=== PATIENT | female | born 1980 | race American Indian/Alaskan Native ===

== ENCOUNTER 2018-12-16 11:23 | Inpatient (IN) | payer MEDICAID ==
[2018-12-16] MEDS ORDERED: FAMOTIDINE 20 MG/2 ML INJ IV ONE ×2 (11:31→12:00)
[2018-12-16] MEDS ORDERED: METOCLOPRAMIDE 10 MG/2 ML INJ ONE (11:31)
[2018-12-16] MEDS ORDERED: BICITRA ORAL LIQD 30ML ONE (11:31)
--- NOTE | 2018-12-16 11:32 | History and Physical Report ---
History of Present Illness Date of examination: 12/16/18 Date of admission: 12/16/2018 Chief complaint: Contractions and leaking of fluid History of present illness: 38 year old female presents with complaint of contractions starting about 30 minutes ago, followed by leaking of green fluid from vagina. Patient is a walk in patient with no care. States her due date is 12/24/18. States she has had 3 previous sections. Upon arrival and initiation of EFM, minimal FHR variability with late decelerations and mild tachycardia noted. SVE 1-2/50/-4/posterior. Meconium stained amniotic fluid noted on rose pad. No bleeding noted. Immediatel y notified Dr. Nugent of patient's arrival, complaints, FHR tracing showeing deep decelerations, minimal variability and mild tachycardia, meconium stained amniotic fluid, and history of [address] Nugent states to get patient ready for section. OR team notified that stat section called. 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 denies: alcohol abuse, prescription drug abuse, IV drug use - Obstetrical History Expected Date of Delivery: 12/24/18 Actual Gestation: 38 Week(s) 6 Day(s) : 4 Para: 3 Medications and Allergies Allergies Allergy/AdvReac Type Severity Reaction Status Date / Time No Known Allergies Allergy Unverified 12/16/18 11:34 Home Medications Medication Instructions Recorded Confirmed Last Taken Type HYDROcodone/APAP 5-325 [[place] 1 - 2 each PO Q4HR PRN 30 Days 12/16/18 Unknown Rx 5/325] tablet Active Meds: Active Medications Citric Acid/Sodium Citrate (Bicitra) 30 ml PO ONCE ONE Stop: 12/16/18 11:30 Famotidine (Pepcid) 20 mg IV ONCE ONE Stop: 12/16/18 11:30 Oxytocin/Sodium Chloride (Pitocin/Ns 20 Unit/1000ml Drip) 20 units in 1,000 mls @ 0 mls/hr IV TITR MARY LOU Cefazolin Sodium (Ancef/Sterile Water 2 Gm/20 Ml) 2 gm in 20 mls @ 80 mls/hr IV PREOP NR; Protocol Lactated Ringer's (Lactated Ringers) 1,000 mls @ 2,250 mls/hr IV PREOP MARY LOU Stop: 12/17/18 12:27 Metoclopramide HCl (Reglan) 10 mg IV ONCE ONE Stop: 12/16/18 11:30 Review of Systems All systems: negative (contractions beginning 30 minutes ago; leaking of green fluid from vagina) - Physical Exam Abdomen: Positive: normal appearance, soft. Negative: distention, guarding Genitourinary (Female): Positive: normal external genitalia, normal perenium Vagina: Positive: other (meconium stained amniotic fluid) Uterus: Positive: enlarged Extremities: Positive: normal. Negative: tenderness, edema - Obstetrical Uterine Contraction Monitor Mode: External Cervical Dilatation: 1.5 Cervical Effacement Percentage: 50 station: -4 Uterine Contraction Pattern: Regular Uterine Contraction Intensity: Moderate Results Result Diagrams: 12/16/18 15:15 All other labs normal. Assessment and Plan A: at 38 weeks, 6 days by patient's self reported EDC. No care, walk in patient. 3 previous sections. FHR decelerations with minimal variability and mild tachycardia. Advanced maternal age. Cigarette smoker. P: Admit. Stat section. Dr. Nugent, OR team, NICU, anesthesia notified. Stat labs drawn.
[2018-12-16] MEDS ORDERED: KETAMINE/STERILE WATER 50 MG/ML SYRINGE ONE (11:43)
[2018-12-16] MEDS ORDERED: PROPOFOL 200 MG/20 ML VIAL IV ONE (11:43)
[2018-12-16] MEDS ORDERED: SUCCINYLCHOLINE CHLORIDE 200 MG/10 ML INJ MDV ONE (11:44)
[2018-12-16] MEDS ORDERED: LIDOCAINE MPF (2%) 20 MG/1 ML VIAL 5 ML ONE (11:55)
[2018-12-16] MEDS ORDERED: OXYTOCIN 20 UNIT/1000ML DRIP 20 UNITS/1,000 ML BAG IV SCH ×2 (12:00→16:00)
[2018-12-16] MEDS ORDERED: ceFAZolin/Water 2 GM/20 ML 2 GM/20 ML SYRINGE IV NR (12:00)
[2018-12-16] MEDS ORDERED: LACTATED RINGERS 1,000 ML IV SCH (12:00)
[2018-12-16] MEDS ORDERED: METOCLOPRAMIDE 10 MG/2 ML INJ IV ONE (12:00)
[2018-12-16] MEDS ORDERED: BICITRA ORAL LIQD 30ML PO ONE (12:00)
[2018-12-16] MEDS ORDERED: NEOSTIGMINE 10MG/10 ML INJ MDV ONE (12:04)
[2018-12-16] MEDS ORDERED: GLYCOPYRROLATE 0.4 MG/2 ML INJ ONE (12:04)
[2018-12-16] MEDS ORDERED: KETOROLAC 30 MG/1 ML INJ ONE (12:05)
[2018-12-16] MEDS ORDERED: ONDANSETRON 4 MG/2 ML INJ ONE (12:05)
[2018-12-16] MEDS ORDERED: dexAMETHasone 20 MG/5 ML VIAL ONE (12:05)
[2018-12-16] MEDS ORDERED: ROCURONIUM 50 MG/5 ML INJ IV ONE (12:08)
[2018-12-16 12:19] LABS: Amphetamine Screen,Urine PRESUMPTIVE NEGATIVE; Benzodiazepines Screen,Urine PRESUMPTIVE NEGATIVE; Cannabinoid Screen,Urine PRESUMPTIVE NEGATIVE; Cocaine Screen,Urine PRESUMPTIVE NEGATIVE; Methadone Screen,Urine PRESUMPTIVE NEGATIVE; Opiate Screen,Urine PRESUMPTIVE NEGATIVE
[2018-12-16 12:25] LABS: Hematocrit 27.2 % (30.3-42.9); Hemoglobin 8.5 gm/dl (10.1-14.3); Red Blood Count 3.87 M/mm3 (3.65-5.03)
[2018-12-16 12:26] LABS: Basophils % (Auto) 0.8 % (0.0-1.8); Eosinophils % (Auto) 0.1 % (0.0-4.3); Lymphocytes # (Auto) 1.5 K/mm3 (1.2-5.4); Lymphocytes % (Auto) 12.7 % (13.4-35.0); Mean Corpuscular HGB Conc 31 % (30-34); Mean Corpuscular Volume 70 fl (79-97); Monocytes # (Auto) 0.7 K/mm3 (0.0-0.8); Monocytes % (Auto) 5.6 % (0.0-7.3); Platelet Count 298 K/mm3 (140-440); Red Cell Distribution Width 19.8 % (13.2-15.2)
[2018-12-16 12:27] LABS: Basophils # (Auto) 0.1 K/mm3 (0.0-0.1)
[2018-12-16] MEDS ORDERED: PHENYLEPHRINE/NS 1,000 MCG/10 ML SYRINGE (OR USE) IV ONE (12:34)
[2018-12-16] MEDS ORDERED: HETASTARCH 6% 0 ML IV ONE (12:37)
[2018-12-16] MEDS ORDERED: HYDROmorphone 1 MG/1 ML INJ ONE ×2 (13:32)
[2018-12-16] MEDS ORDERED: SODIUM CHLORIDE 0.9% 1000 ML 1,000 ML ONE (13:32)
[2018-12-16] MEDS ORDERED: METHYLENE BLUE 50 MG/10 ML AMP ONE (13:39)
[2018-12-16] MEDS ORDERED: SODIUM CHLORIDE 0.9% 500 ML 500 ML IV ONE (13:46)
--- NOTE | 2018-12-16 14:46 | Consultation ---
History of Present Illness - Reason for Consult Consult date: 12/16/18 - History of Present Illness introperative consult from Dr. Yung Henderson 38 year old female presents with complaint of contractions starting about 30 minutes ago, followed by leaking of green fluid from vagina. Patient is a walk in patient with no care. States her due date is 12/24/18. States she has had 3 previous sections. Upon arrival and initiation of EFM, minimal FHR variability with late decelerations and mild tachycardia noted. SVE 1-2/50/-4/posterior. Meconium stained amniotic fluid noted on rose pad. No bleeding noted. Immediately notified Dr. Nugent of patient's arrival, complaints, FHR tracing showeing deep decelerations, minimal variability and mild tachycardia, meconium stained amniotic fluid, and history of 3 previous sections. no exam pt on operating room table Past History Social history: lives with family, smoking, full code. denies: alcohol abuse, prescription drug abuse, IV drug use Medications and Allergies Allergies Allergy/AdvReac Type Severity Reaction Status Date / Time No Known Allergies Allergy Unverified 12/16/18 11:34 Active Meds: Active Medications Oxytocin/Sodium Chloride (Pitocin/Ns 20 Unit/1000ml Drip) 20 units in 1,000 mls @ 0 mls/hr IV TITR MARY LOU Cefazolin Sodium (Ancef/Sterile Water 2 Gm/20 Ml) 2 gm in 20 mls @ 80 mls/hr IV PREOP NR; Protocol Stop: 12/16/18 23:59 Lactated Ringer's (Lactated Ringers) 1,000 mls @ 2,250 mls/hr IV PREOP MARY LOU Stop: 12/17/18 12:27 Results - Labs CBC & Chem 7: 12/16/18 11:32 Labs: Abnormal lab results 12/16/18 12/16/18 12/16/18 Range/Units 11:32 11:40 12:23 WBC 12.0 H (4.5-11.0) K/mm3 Hgb 8.5 L (10.1-14.3) gm/dl Hct 27.2 L (30.3-42.9) % MCV 70 L (79-97) fl MCH 22 L (28-32) pg RDW 19.8 H (13.2-15.2) % Lymph % (Auto) 12.7 L (13.4-35.0) % Seg Neutrophils % 80.8 H (40.0-70.0) % Seg Neutrophils # 9.7 H (1.8-7.7) K/mm3 POC ABG pH 7.261 L (7.35-7.45) Crossmatch See Detail
--- NOTE | 2018-12-16 14:49 | Post Operative Note ---
Date of procedure: 12/16/18 Pre-op diagnosis: urologic injury (stat C section - no care) Post-op diagnosis: same Procedure: pelvic exploration, cytotomy, bilat stent placement with short internal string Anesthesia: MONTSE Surgeon: IVET ROJAS Pathology: none Condition: stable Disposition: ICU
[2018-12-16] MEDS ORDERED: WATER FOR IRRIG STERILE 1,500 ML BOTTLE IR ONE (15:30)
[2018-12-16] MEDS ORDERED: SODIUM CHLORIDE 0.9% IRR 1,500 ML BOTTLE IR ONE (15:30)
[2018-12-16] MEDS ORDERED: LACTATED RINGERS 1,000 ML ONE (15:31)
[2018-12-16] MEDS ORDERED: WITCH HAZEL/ GLYCERIN PAD TP PRN (15:35)
[2018-12-16] MEDS ORDERED: NALOXONE 0.4 MG/1 ML INJ IV PRN (15:35)
[2018-12-16] MEDS ORDERED: ACETAMINOPHEN 325 MG TAB PO PRN (15:35)
[2018-12-16] MEDS ORDERED: MORPHINE 4 MG/1 ML INJ IV PRN (15:35)
[2018-12-16] MEDS ORDERED: LANOLIN/ZINC/DIMETHICONE (LANSINOH) 7 GM TP PRN (15:35)
[2018-12-16 15:41] LABS: Hematocrit 40.6 % (30.3-42.9); Hemoglobin 13.4 gm/dl (10.1-14.3); Mean Corpuscular HGB Conc 33 % (30-34); Mean Corpuscular Volume 84 fl (79-97); Platelet Count 178 K/mm3 (140-440); Red Blood Count 4.82 M/mm3 (3.65-5.03); Red Cell Distribution Width 19.1 % (13.2-15.2)
[2018-12-16] MEDS ORDERED: HYDROmorphone 1 MG/1 ML INJ IV PRN (15:50)
[2018-12-16] MEDS ORDERED: PROMETHAZINE 25 MG RECT SUPP PR PRN (15:50)
[2018-12-16] MEDS ORDERED: ONDANSETRON 4 MG/2 ML INJ IV PRN (15:50)
[2018-12-16] MEDS ORDERED: PROMETHAZINE 25 MG TAB PO PRN (15:50)
--- NOTE | 2018-12-16 15:54 | Anesthesia Consultation ---
Anesthesia Consult and Med Hx Date of service: 12/16/18 - Airway Anesthetic Teeth Evaluation: Poor ROM Head & Neck: Adequate Mental/Hyoid Distance: Adequate Mallampati Class: Class II Intubation Access Assessment: Good - Pulmonary Exam CTA: Yes - Cardiac Exam Cardiac Exam: RRR - Pre-Operative Health Status ASA Pre-Surgery Classification: ASA3, Emergency Proposed Anesthetic Plan: General - Pulmonary Hx Smoking: Yes (marijuana daily) Hx Asthma: No Hx Respiratory Symptoms: No SOB: No COPD: No Home Oxygen Therapy: No Hx Pneumonia: No Hx Sleep Apnea: No - Cardiovascular System Hx Hypertension: No Hx Coronary Artery Disease: No Hx Heart Attack/AMI: No Hx Angina: No Hx Percutaneous Transluminal Coronary Angioplasty (PTCA): No Hx Cardia Arrhythmia: No Hx Pacemaker: No Hx Internal Defibrillator: No Hx Valvular Heart Disease: No Hx Heart Murmur: No Hx Peripheral Vascular Disease: No - Central Nervous System Hx Neuromuscular Disorder: No Hx Seizures: No CVA: No Hx Back Pain: No Hx Psychiatric Problems: No - Gastrointestinal Hx Ulcer: No Hx Gastroesophageal Reflux Disease: No - Endocrine Hx Renal Disease: No Hx End Stage Renal Disease: No Hx Cirrhosis: No Hx Liver Disease: No Hx Insulin Dependent Diabetes: No Hx Non-Insulin Dependent Diabetes: No Hx Thyroid Disease: No Hx Hypothyroidism: No Hx Hyperthyroidism: No - Hematic Hx Anemia: No Hx Sickle Cell Disease: No - Other Systems Hx Alcohol Use: No Hx Substance Use: No Hx Cancer: No Hx Obesity: Yes (BMI 32.4)
--- NOTE | 2018-12-16 15:56 | Anesthesia Day of Surgery ---
Anesthesia Day of Surgery - Day of Surgery Patient Examined: Yes Patient H&P Reviewed: Yes Patient is NPO: Yes Beta Blockers: No Cardiac Clearance: No Pulmonary Clearance: No Portillo's Test: N/A
--- NOTE | 2018-12-16 15:56 | Post Anesthesia Evaluation ---
- Post Anesthesia Evaluation Patient Participated: Yes Airway Patent: Yes Stable Respiratory Function: Yes Nausea/Vomiting: No Temp > 96.8F: Yes Pain Manageable: Yes Adequeate Hydration: Yes Anesthesia Complications: No Block Receding Appropriately: Not Applicable Patient on Ventilator: Yes
--- NOTE | 2018-12-16 16:10 | Operative Report ---
Operative Report Operative Report: Date of surgery: 12/16/2018 Preoperative diagnoses: Late decelerations, spontaneous rupture of membranes, meconium staining of amniotic fluid, 3 previous sections Postoperative diagnoses: The same. Intraoperative hemorrhage. Operation: Emergency Lower segment transverse delivery. hysterectomy, cystotomy and bilateral ureteric stent placement Surgeon:Emre Nugent MD Urologist: Yasmany Coughlin Building Maintenance Technician: CORAL Hunter Anesthesia: Gen. anesthesia Estimated blood loss: 1700 mL Complications: Intraoperative Hemorrhage involving the left adnexa. Findings: There was a live baby girl in cephalic presentation within an amniotic sac full of meconium-stained fluid. Both ovaries were grossly normal. After the low transverse uterine incision had been repaired, it was noted that there was a rapidly expanding hematoma within the left broad ligament. Initial attempts at isolating the bleeding vessels failed. Because of the proximity of the bleeding points to the intersection of the path of the ureter on the left side the safest course of action was to remove the uterus and then a urologist define the paths and integrity of both ureters. Procedure in detail: The patient was taken to the operating room and given a spinal block. Patient was placed in the straight supine position and a Askew catheter was inserted. The patient was prepped in the abdomen. The drapes were placed. A timeout was done. With the go ahead from the commercial sales specialist, a Pfannenstiel incision was made. This incision was carried across the subcutaneous layer to the fascia which was also divided transversely. The recti abdominis muscle flaps were stripped from the fascia using a combination of blunt and sharp dissections. The muscles were in the midline to gain access to the anterior parietal peritoneum which was divided after excluding any underlying viscera. The access to the peritoneal cavity was then widened by manual stretching. The bladder blade was applied. The utero vesicle peritoneal flap was divided transversely allowing the bladder to be displaced caudally. The uterine incision was placed in the lower segment transversely. The uterine incision was carried to the decidual layer. The uterine incision was extended on both sides using the bandage scissors. The amniotic sac was ruptured with clear fluid. The head was lifted out of the false maternal pelvis and delivered through the incision using fundal pressure. The airways were bulb suctioned beginning with the mouth. Continuing fundal pressure combined with traction on the mandibular processes of the jaw delivered the rest of the baby. The umbilical cord was double clamped and divided. The baby was carefully transferred to the pediatric team. The placenta was manually removed from the uterine cavity. The uterine cavity was explored and was empty of any placental remnants. The uterine incision was repaired in 2 layers with #1 Vicryl. The surgical line on the uterus was not hemostatic. Due to a rapidly expanding hematoma within the left broad ligament the decision was made to remove the uterus. Both ovaries were isolated from the utero ovarian ligaments. The adnexa was then divided all the way down to the uterine arterial branch aspects using serial clamping with the Eduin's forceps and suture ligating the pedicles as the procedure proceeded. The uterine specimen was removed in 3 pieces to enhance visibility within the operating field. Hemostasis was finally achieved. Due to the distortion of the adnexa particularly on the left side by the described hematoma as well as from effects of , Dr. Coughlin, urologist, was consulted and he arrived to perform a cystotomy and placed stents in both ureters. He repaired the cystotomy with 2-0 Vicryl in 2 layers and planned on seeing the patient in his office in 3 days. He also requested for the fullest catheter to be retained for 2 weeks. Blood and clots were cleared from the peritoneal cavity. The anterior parietal peritoneum was repaired with #1 Vicryl. The fascia was repaired with #1 Vicryl. The subcutaneous layer was made hemostatic using the Bovie before the skin was closed subcuticularly with 4-0 Vicryl. Hemorrhage complicated the initial section leading to an additional hysterectomy. The estimated blood loss was 1700 mL. All sponges and instrument counts were correct. Patient was safely transferred to the recovery room.
--- NOTE | 2018-12-16 16:13 | History and Physical Report ---
History of Present Illness Date of examination: 12/16/18 Date of admission: 12/16/18 12:00 Chief complaint: History of present illness: Term infant born to a 37YO mother via CS for distress, meconium- stained fluid. No care. Maternal's labs will be drawn and follow. Mother is admitted into the ICU following delivery. in holding in the NICU. Documentation - Maternal Info Delivery Method: Repeat Section Events: No Care - information: Delivery Date 12/16/18 Delivery Time 11:53 Gestational Age 38.6 Birthweight 2.945 kg Height 5 ft 3 in Results - Laboratory Findings 12/16/18 15:15 Abnormal lab results 12/16/18 12/16/18 12/16/18 Range/Units 11:32 11:40 12:23 WBC 12.0 H (4.5-11.0) K/mm3 Hgb 8.5 L (10.1-14.3) gm/dl Hct 27.2 L (30.3-42.9) % MCV 70 L (79-97) fl MCH 22 L (28-32) pg RDW 19.8 H (13.2-15.2) % Lymph % (Auto) 12.7 L (13.4-35.0) % Seg Neutrophils % 80.8 H (40.0-70.0) % Seg Neutrophils # 9.7 H (1.8-7.7) K/mm3 POC ABG pH 7.261 L (7.35-7.45) Crossmatch See Detail 12/16/18 Range/Units 15:15 WBC 33.8 H (4.5-11.0) K/mm3 Hgb (10.1-14.3) gm/dl Hct (30.3-42.9) % MCV (79-97) fl MCH (28-32) pg RDW 19.1 H (13.2-15.2) % Lymph % (Auto) (13.4-35.0) % Seg Neutrophils % (40.0-70.0) % Seg Neutrophils # (1.8-7.7) K/mm3 POC ABG pH (7.35-7.45) Crossmatch Provider Discharge Summary - Provider Discharge Summary - Follow-Up Plan Follow up with: SHAWN GARCIA MD [Primary Care Provider] - 7 Days
--- NOTE | 2018-12-16 18:29 | Event Note ---
Date: 12/16/[address] Nugent and informed him of WBC of 33.8. Dr. Nugent states to repeat CBC now and again in the morning. No other orders received from Dr. Nugent.
--- NOTE | 2018-12-16 19:24 | Operative Report ---
PREOPERATIVE DIAGNOSES: Pelvic bleeding, possible ureteral injury, stat , no care. POSTOPERATIVE DIAGNOSES: Pelvic bleeding, possible ureteral injury, stat , no care. PROCEDURES: Pelvic exploration, cystotomy, bilateral double-J stent placement. SURGEON: Luis Coughlin MD DATA MANAGEMENT CONSULTANT: Dr. Nugent. ANESTHESIA: General. ESTIMATED BLOOD LOSS: Minimal. FLUIDS: Crystalloid. COMPLICATIONS: No complications. INDICATIONS: The patient is a 38-year-old female who presented to the hospital and no previous history. Dr. Nugent noted the patient was in labor and tachycardia and took the patient for emergency . I was called. The patient was in the OR. There was bleeding and he was concerned for ureteral injury. Obstetrical note will be dictated under separate cover. DESCRIPTION OF PROCEDURE: I walked it in the operating room. The patient was asleep under general anesthesia. Pelvis was opened with a Pfannenstiel incision. Uterus had already been removed. A discussion with Dr. Nugent, he was concerned for ureteral injury due to the bleeding and attempts to stop the bleeding may have ligated the ureter. Bleeding was stopped. Pelvic exploration due to the edema and swelling unable to visualize the ureter in the retroperitoneal space; therefore, anterior cystotomy was made. Methylene blue was given intravenously. However, due to the patient's dehydrated status and waiting for several minutes was unable to appreciate any blue in the ureters. A small amount of urine could be appreciated what appeared from to be the ureters. I was able to cannulate bilaterally with a 0.035 Glidewire. I advanced the wire, placed 6-Persian 22 cm double-J stent bilaterally with a short internal string). Again, the bladder was left open just to observe Methylene blue; however, there was a small amount of urine, no blue could be appreciated. We completed the pelvic exploration. No other bleeding could be appreciated. Anterior cystotomy was closed in 2 layers using 2-0 Vicryl in a running fashion. We will replace the Askew. Dr. Nugent will dictate the rest of his procedure under separate cover. JOB# [id number] [facility]
[2018-12-16 19:41] LABS: Hematocrit 38.5 % (30.3-42.9); Hemoglobin 12.7 gm/dl (10.1-14.3); Mean Corpuscular HGB Conc 33 % (30-34); Mean Corpuscular Volume 83 fl (79-97); Platelet Count 183 K/mm3 (140-440); Red Blood Count 4.65 M/mm3 (3.65-5.03); Red Cell Distribution Width 18.7 % (13.2-15.2)
[2018-12-16 20:02] LABS: Hepatitis C Virus Antibody Non-Reactive (NonReactive)
[2018-12-16] MEDS: HYDROmorphone 1 MG/1 ML INJ IV PRN (20:39)
[2018-12-16] MEDS: ceFAZolin/NS 1 GM/50 ML 1 GM/50 ML BAG IV SCH (20:39)
[2018-12-16 20:51] LABS: Basophils % (Manual) 0 % (0.0-1.8); Eosinophils % (Manual) 0 % (0.0-4.3); Nucleated Red Blood Cells 0.5 % (0.0-0.9); Total Cells Counted 200
[2018-12-16 20:52] LABS: Anisocytosis 1+; Large Platelets 1+; Ovalocytes 1+; Platelet Estimate Consistent w Auto; Tear Drop Cells Few
[2018-12-16] MEDS ORDERED: D5W/LACTATED RINGERS 1,000 ML IV SCH (22:00)
[2018-12-16] MEDS: KETOROLAC 30 MG/1 ML INJ IV PRN (23:05)
--- NOTE | 2018-12-16 23:48 | Event Note ---
Date: 12/16/[address] Nugent that patient's repeat WBC was 31.5. Dr. Nugent states to repeat CBC tomorrow morning. No other orders received from Dr. Nugent.
[2018-12-17] MEDS: HYDROmorphone 1 MG/1 ML INJ IV PRN ×2 (02:16→09:44)
[2018-12-17] MEDS: ceFAZolin/NS 1 GM/50 ML 1 GM/50 ML BAG IV SCH (03:54)
[2018-12-17] MEDS: KETOROLAC 30 MG/1 ML INJ IV PRN (05:28)
[2018-12-17 08:43] LABS: Basophils % (Auto) 0.1 % (0.0-1.8); Lymphocytes # (Auto) 2.3 K/mm3 (1.2-5.4); Lymphocytes % (Auto) 16.2 % (13.4-35.0); Mean Corpuscular HGB Conc 33 % (30-34); Mean Corpuscular Volume 83 fl (79-97); Monocytes # (Auto) 1.4 K/mm3 (0.0-0.8); Monocytes % (Auto) 9.6 % (0.0-7.3); Platelet Count 161 K/mm3 (140-440); Red Blood Count 3.27 M/mm3 (3.65-5.03); Red Cell Distribution Width 19.1 % (13.2-15.2)
--- NOTE | 2018-12-17 09:01 | XRay Report ---
ABDOMEN 1 VIEW(S) INDICATION / CLINICAL INFORMATION: s/p exploration, stent placement. COMPARISON: None available. FINDINGS: TUBES / LINES: Bilateral ureteral stents appear in good position. BOWEL GAS PATTERN: No significant abnormality. FREE AIR / EXTRALUMINAL GAS: None seen. ADDITIONAL FINDINGS: No significant additional findings. IMPRESSION: No significant abnormality. Bilateral ureteral stents appear in good position. Signer Name: Aniceto Carrion Jr, MD Signed: 12/17/2018 8:56 AM Workstation Name: [id number]
[2018-12-17 09:03] LABS: BUN/Creatinine Ratio 12; Blood Urea Nitrogen 12 mg/dL (7-17); Calcium 7.8 mg/dL (8.4-10.2); Hemolysis Index 24
[2018-12-17] MEDS: FERROUS SULFATE 325 MG TAB PO SCH (09:46)
[2018-12-17] MEDS: IBUPROFEN 800 MG TAB PO PRN ×3 (12:10→23:40)
[2018-12-17] MEDS: oxyCODONE /ACETAMINOPHEN 5-325MG TAB PO PRN ×2 (12:10→18:11)
--- NOTE | 2018-12-17 12:10 | Progress Note ---
Assessment and Plan - Patient Problems (1) S/P repeat low transverse Current Visit: Yes Status: Acute Plan to address problem: POD 1 - unstable Continue routine postop orders Abdominal binder ordered Anticipate discharge in 48 hours (2) Single live Current Visit: Yes Status: Acute (3) Uncontrolled pain Current Visit: Yes Status: Acute Plan to address problem: IV pain medications discontinued and patient started on Percocet and Ibuprofen Encouraged ambulation, as tolerated (4) Cough productive of yellow sputum Current Visit: Yes Status: Acute Plan to address problem: Afebrile - WBC count 14.2 (was 33.8 post-delivery) Robitussin prn ordered Recommended abdominal splinting with a pillow when coughing Encouraged use of incentive spirometer (5) Anemia due to blood loss, acute Current Visit: Yes Status: Acute Plan to address problem: Asymptomatic s/p blood transfusion Continue iron therapy (6) S/P emergency hysterectomy Current Visit: Yes Status: Acute (7) Cystostomy in place Current Visit: Yes Status: Acute (8) S/P ureteral stent placement Current Visit: Yes Status: Acute (9) Rh negative status during Current Visit: Yes Status: Acute Qualifiers: Trimester: third trimester Qualified Code(s): O26.893 - Other specified related conditions, third trimester; Z67.91 - Unspecified blood type, Rh negative Plan to address problem: Rhogam ordered Subjective - Subjective Date of service: 12/17/18 Principal diagnosis: POD#1; s/p R.LTCS, Hysterectomy, Cystotomy and Jerod.Ureteric Stent Placement Interval history: see H&P, Consult Note, Brief Operative Note, Operative Note and Event Notes Patient reports: appetite normal, pain poorly controlled (patient became teary during our discussion. Reports relief after IV pain meds last less than 1 hour), other (reports productive cough, denies fever, chills or chestpain. Askew catheter in place - urine dark in color.), no flatus, no bowel movement [place]: in NICU Objective - Vital Signs Latest vital signs: Vital Signs Temp Pulse Resp BP BP Pulse Ox 12/17/18 09:12 97.6 F 64 18 126/66 100 12/17/18 05:58 18 12/17/18 05:28 16 12/17/18 04:00 98.7 F 73 18 121/72 12/17/18 02:46 18 12/17/18 00:00 98.7 F 79 18 132/82 12/16/18 23:35 18 12/16/18 23:05 18 12/16/18 21:09 18 12/16/18 20:39 18 12/16/18 20:00 98.7 F 68 18 118/63 12/16/18 18:00 97.6 F 98 H 18 128/74 97 12/16/18 17:30 98.2 F 92 H 18 130/82 100 12/16/18 17:00 97.9 F 97 H 21 140/71 100 12/16/18 16:45 96 H 21 123/82 100 12/16/18 16:30 89 24 144/64 100 12/16/18 16:15 101 H 22 133/78 99 12/16/18 16:00 93 H 22 131/77 100 12/16/18 15:50 82 16 128/70 99 12/16/18 15:45 98.2 F 88 16 133/69 99 12/16/18 15:40 98.2 F 105 H 19 133/62 99 Intake and Output 12/16/18 12/17/18 12/17/18 23:59 07:59 15:59 Intake Total 150 300 Output Total 410 195 Balance -260 105 Intake: IV 150 ANCEF/NS 1 GM/50 ML 1 gm 50 In 50 ml @ 100 mls/hr IV Q8H [facility] Rx#:[id number] Intake, Free Water 300 Output: Urine 410 195 Indwelling Catheter 200 195 Uretheral (Askew) 180 Other: Total, Output Amount 100 65 Voiding Method Indwelling Catheter Estimated Blood Loss 1,700 - Exam Cardiovascular: Present: Regular rate Lungs: Present: Clear to auscultation, Normal air movement Abdomen: Present: normal appearance, soft Vulva: both: normal Extremities: Present: normal Incision: Present: normal, dry, intact, dressed Comments: scant lochia - Labs Labs: Abnormal lab results 12/16/18 12/16/18 12/16/18 Range/Units 11:32 11:40 12:23 WBC 12.0 H (4.5-11.0) K/mm3 RBC (3.65-5.03) M/mm3 Hgb 8.5 L (10.1-14.3) gm/dl Hct 27.2 L (30.3-42.9) % MCV 70 L (79-97) fl MCH 22 L (28-32) pg RDW 19.8 H (13.2-15.2) % Lymph % (Auto) 12.7 L (13.4-35.0) % [place] % (Auto) (0.0-7.3) % [place] # (0.0-0.8) K/mm3 Seg Neutrophils % 80.8 H (40.0-70.0) % Seg Neuts % (Manual) (40.0-70.0) % Lymphocytes % (Manual) (13.4-35.0) % Seg Neutrophils # 9.7 H (1.8-7.7) K/mm3 Seg Neutrophils # Man (1.8-7.7) K/mm3 Lymphocytes # (Manual) (1.2-5.4) K/mm3 Monocytes # (Manual) (0.0-0.8) K/mm3 POC ABG pH 7.261 L (7.35-7.45) Sodium (137-145) mmol/L Carbon Dioxide (22-30) mmol/L Calcium (8.4-10.2) mg/dL Crossmatch See Detail 12/16/18 12/16/18 12/17/18 Range/Units 15:15 18:55 07:20 WBC 33.8 H 31.5 H 14.2 H (4.5-11.0) K/mm3 RBC 3.27 L (3.65-5.03) M/mm3 Hgb 9.0 L D (10.1-14.3) gm/dl Hct 27.0 L D (30.3-42.9) % MCV (79-97) fl MCH 27 L (28-32) pg RDW 19.1 H 18.7 H 19.1 H (13.2-15.2) % Lymph % (Auto) (13.4-35.0) % [place] % (Auto) 9.6 H (0.0-7.3) % [place] # 1.4 H (0.0-0.8) K/mm3 Seg Neutrophils % 74.1 H (40.0-70.0) % Seg Neuts % (Manual) 94.5 H (40.0-70.0) % Lymphocytes % (Manual) 2.5 L (13.4-35.0) % Seg Neutrophils # 10.6 H (1.8-7.7) K/mm3 Seg Neutrophils # Man 29.8 H (1.8-7.7) K/mm3 Lymphocytes # (Manual) 0.8 L (1.2-5.4) K/mm3 Monocytes # (Manual) 0.9 H (0.0-0.8) K/mm3 POC ABG pH (7.35-7.45) Sodium (137-145) mmol/L Carbon Dioxide (22-30) mmol/L Calcium (8.4-10.2) mg/dL Crossmatch 12/17/18 Range/Units 08:22 WBC (4.5-11.0) K/mm3 RBC (3.65-5.03) M/mm3 Hgb (10.1-14.3) gm/dl Hct (30.3-42.9) % MCV (79-97) fl MCH (28-32) pg RDW (13.2-15.2) % Lymph % (Auto) (13.4-35.0) % [place] % (Auto) (0.0-7.3) % [place] # (0.0-0.8) K/mm3 Seg Neutrophils % (40.0-70.0) % Seg Neuts % (Manual) (40.0-70.0) % Lymphocytes % (Manual) (13.4-35.0) % Seg Neutrophils # (1.8-7.7) K/mm3 Seg Neutrophils # Man (1.8-7.7) K/mm3 Lymphocytes # (Manual) (1.2-5.4) K/mm3 Monocytes # (Manual) (0.0-0.8) K/mm3 POC ABG pH (7.35-7.45) Sodium 133 L (137-145) mmol/L Carbon Dioxide 18 L (22-30) mmol/L Calcium 7.8 L (8.4-10.2) mg/dL Crossmatch
[2018-12-17] MEDS: guaiFENesin 100 MG/5 ML ORAL LIQD PO PRN ×3 (12:22→23:40)
[2018-12-17] MEDS: diphenhydrAMINE 50 MG/ML VIAL IV PRN (18:11)
[2018-12-18] MEDS: oxyCODONE /ACETAMINOPHEN 5-325MG TAB PO PRN ×4 (01:57→21:27)
[2018-12-18] MEDS: IBUPROFEN 800 MG TAB PO PRN ×2 (05:48→11:55)
--- NOTE | 2018-12-18 08:52 | Progress Note ---
Subjective Date of service: 12/18/18 Principal diagnosis: POD#1; s/p R.LTCS, Hysterectomy, Cystotomy and Jerod.Ureteric Stent Placement Interval history: pelvic exploration, cytotomy, bilat stent placement with short internal string---CRYSTAL STABLE discussed findings vora pink tinged urine (normal for a month) ok to go home with vora will need cystogram in 2wks will need cysto stent removal 4 wks Objective - Constitutional Vitals: Vital Signs - 12hr 12/17/18 12/17/18 12/17/18 23:27 23:32 23:40 Temperature 98.2 F 98.5 F Pulse Rate 68 64 Respiratory 20 20 18 Rate Blood Pressure 110/57 O2 Sat by Pulse 94 100 Oximetry 12/18/18 12/18/18 12/18/18 00:40 01:57 02:57 Temperature Pulse Rate Respiratory 16 18 18 Rate Blood Pressure O2 Sat by Pulse Oximetry 12/18/18 12/18/18 12/18/18 04:16 05:48 08:11 Temperature 98.5 F 98.2 F Pulse Rate 72 61 Respiratory 20 18 20 Rate Blood Pressure 121/62 112/50 O2 Sat by Pulse 99 99 Oximetry - Labs CBC & Chem 7: 12/17/18 07:20 12/17/18 08:22 Labs: Abnormal lab results 12/16/18 12/17/18 Range/Units 11:40 08:22 Sodium 133 L (137-145) mmol/L Carbon Dioxide 18 L (22-30) mmol/L Calcium 7.8 L (8.4-10.2) mg/dL Crossmatch See Detail Medications & Allergies - Medications Allergies/Adverse Reactions: Allergies No Known Allergies Allergy (Unverified 12/16/18 11:34) Home Medications: Home Medications Medication Instructions Recorded Confirmed Last Taken Type HYDROcodone/APAP 5-325 [[place] 1 - 2 each PO Q4HR PRN 30 Days 12/16/18 Unknown Rx 5/325] tablet Active Medications: Generic Name Dose Route Start Last Admin Trade Name Freq PRN Reason Stop Dose Admin Acetaminophen 650 mg 12/16/18 15:35 Tylenol PO Q4H PRN Fever >100.5/ARITA Diphenhydramine HCl 25 mg 12/17/18 17:56 12/17/18 18:11 Benadryl IV 25 mg Q6H PRN Administration Itching Ferrous Sulfate 325 mg 12/17/18 10:00 12/17/18 09:46 Feosol PO 325 mg QDAY MARY LOU Administration Guaifenesin 200 mg 12/17/18 12:30 12/17/18 23:40 Robitussin PO 200 mg Q4H PRN Administration Cough Dextrose/Lactated Ringer's 1,000 mls @ 125 mls/hr 12/16/18 22:00 12/16/18 23:06 D5lr IV 125 mls/hr DIRECT MARY LOU Administration Ibuprofen 800 mg 12/16/18 15:35 12/18/18 05:48 Ibuprofen PO 800 mg Q6H PRN Administration Pain, Mild (1-3) Ketorolac Tromethamine 30 mg 12/16/18 15:35 12/17/18 05:28 Toradol IV 12/21/18 15:34 30 mg Q6H PRN Administration Pain, Moderate (4-6) Multi-Ingredient Ointment 1 applic 12/16/18 15:35 Lansinoh TP PRN PRN dryness/cracking Naloxone HCl 0.1 mg 12/16/18 15:35 Naloxone IV Q2MIN PRN Res Rate </= 8 or 02 SAT < 92% Ondansetron HCl 4 mg 12/16/18 15:50 Zofran IV Q8H PRN Nausea And Vomiting Oxycodone/Acetaminophen 2 tab 12/17/18 12:30 12/18/18 01:57 Percocet 5/325 PO 2 tab Q6H PRN Administration Pain, Moderate (4-6) Promethazine HCl 25 mg 12/16/18 15:50 Phenergan PO Q6H PRN Nausea And Vomiting Promethazine HCl 25 mg 12/16/18 15:50 Phenergan MD Q6H PRN Nausea And Vomiting Witch Delmy/Glycerin 1 each 12/16/18 15:35 Tucks Pad TP PRN PRN Hemorrhoids/cleansing/soothing
[2018-12-18] MEDS: FERROUS SULFATE 325 MG TAB PO SCH (09:44)
[2018-12-18] MEDS: guaiFENesin 100 MG/5 ML ORAL LIQD PO PRN (09:46)
--- NOTE | 2018-12-18 10:44 | Progress Note ---
Assessment and Plan - Patient Problems (1) S/P repeat low transverse Current Visit: Yes Status: Acute Plan to address problem: Continue routine PP orders Anticipate d/c home tomorrow if stable (2) Anemia due to blood loss, acute Current Visit: Yes Status: Acute Plan to address problem: Asymptomatic Continue scheduled oral iron supplementation Increase iron rich foods into diet (3) Cystostomy in place Current Visit: Yes Status: Acute Plan to address problem: Vora to remain in place per urologist D/C home with vora Cystogram in 2 wks per urologist (4) S/P emergency hysterectomy Current Visit: Yes Status: Acute (5) S/P ureteral stent placement Current Visit: Yes Status: Acute Plan to address problem: Stent removal in 4 wks per urologist Subjective - Subjective Date of service: 12/18/18 Principal diagnosis: POD#2; s/p R.LTCS, Hysterectomy, Cystotomy and Jerod.Ureteric Stent Placement Interval history: See admission H & P; OB operative report and PP progress notes Patient reports: appetite normal, pain well controlled (reports pain is much better than yesterday with po pain meds), flatus, ambulating normally, other (vora remains in place, urine remains slightly blood tinged), no bowel movement : in NICU, bottle feeding Objective - Vital Signs Latest vital signs: Vital Signs Temp Pulse Resp BP BP Pulse Ox 12/18/18 08:11 98.2 F 61 20 112/50 99 12/18/18 05:48 18 12/18/18 04:16 98.5 F 72 20 121/62 99 12/18/18 02:57 18 12/18/18 01:57 18 12/18/18 00:40 16 12/17/18 23:40 18 12/17/18 23:32 98.5 F 64 20 110/57 100 12/17/18 23:27 98.2 F 68 20 94 12/17/18 19:58 98.5 F 68 18 102/56 100 12/17/18 19:12 18 12/17/18 19:11 18 12/17/18 17:27 97.6 F 65 18 100/63 100 Intake and Output 12/17/18 12/18/18 12/18/18 23:59 07:59 15:59 Intake Total 720 600 240 Output Total 800 600 200 Balance -80 0 40 Intake: Oral 360 480 240 Intake, Free Water 360 120 Output: Urine 800 600 200 Indwelling Catheter 800 600 200 Other: Total, Intake Amount 360 120 240 Total, Output Amount 350 600 200 - Exam Breasts: Present: normal Cardiovascular: Present: Regular rate Lungs: Present: Normal air movement Abdomen: Present: distention (with hypo bowel sounds) Uterus: Present: firm, fundal height below umbilicus (U-1) Extremities: Present: edema (in BLE) Incision: Present: dressed (no shawdow drainage or bleeding noted) - Labs Labs: Abnormal lab results 12/16/18 Range/Units 11:40 Crossmatch See Detail
[2018-12-18] MEDS: diphenhydrAMINE 50 MG/ML VIAL IV PRN (12:00)
[2018-12-19] MEDS: IBUPROFEN 800 MG TAB PO PRN ×2 (02:38→09:27)
[2018-12-19] MEDS: oxyCODONE /ACETAMINOPHEN 5-325MG TAB PO PRN (05:36)
[2018-12-19 07:22] LABS: HIV-1 Antibody Differentiation SEE SCANNED RESULT; HIV-2 Antibody Differentiation SEE SCANNED RESULT
[2018-12-19] MEDS: FERROUS SULFATE 325 MG TAB PO SCH (09:27)
--- NOTE | 2018-12-19 12:35 | Progress Note ---
Subjective - Subjective Date of service: 12/19/18 Principal diagnosis: POD#3; s/p R.LTCS, Hysterectomy, Cystotomy and Jerod.Ureteric Stent Placement Interval history: doing well afebrile, tolerating PO, +ve flatus baby doing well no complaints VSS(see below) RRR LCTAB soft, NT (c/d/i), +ve BS Ext: from , strength 5/5 will hold d/c to home with Bactrim and vora bag [facility] urology [facility] OBG[facility] 1 week patient acknowledges understanding of plan of care Shakeel TALAVERA Vital Signs Temp 98.5 F 12/19/18 12:11 Pulse 70 12/19/18 12:11 Resp 18 12/19/18 12:11 BP 97/53 12/19/18 12:11 Pulse Ox 100 12/18/18 15:51 Intake & Output 12/18/18 12/19/18 12/19/18 23:59 11:59 23:59 Intake Total 660 1080 480 Output Total 500 750 Balance 160 330 480 Intake: Oral 360 480 480 Intake, Free Water 300 600 Output: Urine 500 750 Indwelling Catheter 500 750 Other: Total, Intake Amount 120 480 480 Total, Output Amount 300 350 Objective - Vital Signs Vital Signs: Vital Signs - 12hr 12/19/18 12/19/18 12/19/18 02:38 05:36 08:27 Temperature 98.2 F Pulse Rate 62 Respiratory 18 18 18 Rate Blood Pressure 114/47 [Left] - Labs Labs: Abnormal Labs 12/16/18 12/16/18 12/16/18 11:32 11:40 12:23 WBC 12.0 H RBC Hgb 8.5 L Hct 27.2 L MCV 70 L MCH 22 L RDW 19.8 H Lymph % (Auto) 12.7 L [place] % (Auto) [place] # Seg Neutrophils % 80.8 H Seg Neuts % (Manual) Lymphocytes % (Manual) Seg Neutrophils # 9.7 H Seg Neutrophils # Man Lymphocytes # (Manual) Monocytes # (Manual) POC ABG pH 7.261 L Sodium Carbon Dioxide Calcium Crossmatch See Detail 12/16/18 12/16/18 12/17/18 15:15 18:55 07:20 WBC 33.8 H 31.5 H 14.2 H RBC 3.27 L Hgb 9.0 L D Hct 27.0 L D MCV MCH 27 L RDW 19.1 H 18.7 H 19.1 H Lymph % (Auto) [place] % (Auto) 9.6 H [place] # 1.4 H Seg Neutrophils % 74.1 H Seg Neuts % (Manual) 94.5 H Lymphocytes % (Manual) 2.5 L Seg Neutrophils # 10.6 H Seg Neutrophils # Man 29.8 H Lymphocytes # (Manual) 0.8 L Monocytes # (Manual) 0.9 H POC ABG pH Sodium Carbon Dioxide Calcium Crossmatch 12/17/18 08:22 WBC RBC Hgb Hct MCV MCH RDW Lymph % (Auto) [place] % (Auto) [place] # Seg Neutrophils % Seg Neuts % (Manual) Lymphocytes % (Manual) Seg Neutrophils # Seg Neutrophils # Man Lymphocytes # (Manual) Monocytes # (Manual) POC ABG pH Sodium 133 L Carbon Dioxide 18 L Calcium 7.8 L Crossmatch Laboratory Results - last 24 hr 12/16/18 21:15 HIV-1 Antibody See scanned result HIV-2 Ab (Immunoblot) See scanned result
[2018-12-19 16:46] VITALS: BP 120/60
--- NOTE | 2019-01-31 13:59 | Discharge Summary ---
Providers - Providers Date of Admission: 12/16/18 12:00 Date of discharge: 12/19/18 Attending physician: PASHA DAVILA MD Primary care physician: SHAWN GARCIA MD Hospitalization Procedure: other (LTCS, hysterectomy, cysto, bilateral urethral stents) complications: none Discharge diagnosis: other (ltcs sp hysterectomy for intraoperative bleeding) Condition at discharge: Stable Disposition: - TO HOME OR SELFCARE Plan - Discharge Medications Prescriptions: Sulfamethoxazole/Trimethoprim [Bactrim DS TAB] 1 each PO BID #90 tablet HYDROcodone/APAP 5-325 [[place] 5/325] 1 - 2 each PO Q4HR PRN 30 Days tablet PRN Reason: Pain - Provider Discharge Summary Activity: no heavy lifting 4 weeks, no strenuous exercise Diet: routine Instructions: routine Additional instructions: [] Smoking cessation referral if applicable(refer to patient education folder for contact #) [] Refer to [facility] Booklet Call your doctor immediately for: * Fever > 100.5 * Heavy vaginal bleeding ( >1 pad per hour) * Severe persistent headache * Shortness of breath * Reddened, hot, painful area to leg or breast * Drainage or odor from incision. * Keep incision clean and dry at all times and follow doctor's instructions regarding bathing/showering - Follow up plan Follow up: PRIMARY CARE, [Primary Care Provider] - 7 Days Forms: [facility] Discharge Summary
== END 2018-12-19 19:15 | disposition home or self-care (01) | DRG 765 ==
LOC: TRG 11:23 → APU 12:00 → OB 17:59
PROVIDERS: ADMIT Obstetrics & Gynecology; ATTEND Obstetrics & Gynecology
PROC: 10D00Z1 Extraction of Products of Conception, Low, Open Approach (ICD-10-PCS; principal; 2018-12-16)
PROC: 0UT90ZZ Resection of Uterus, Open Approach (ICD-10-PCS; 2018-12-16)
PROC: 0TJB0ZZ Inspection of Bladder, Open Approach (ICD-10-PCS; 2018-12-16)
PROC: 0T780DZ Dilation of Bilateral Ureters with Intraluminal Device, Open Approach (ICD-10-PCS; 2018-12-16)
PROC: 30233N1 Transfusion of Nonautologous Red Blood Cells into Peripheral Vein, Percutaneous Approach (ICD-10-PCS; 2018-12-16)
PROC: 3E0234Z Introduction of Serum, Toxoid and Vaccine into Muscle, Percutaneous Approach (ICD-10-PCS; 2018-12-17)
DX: O76 Abnormality in fetal heart rate and rhythm complicating labor and delivery (principal); D62 Acute posthemorrhagic anemia; S37.10XA Unspecified injury of ureter, initial encounter; O99.324 Drug use complicating childbirth; O34.211 Maternal care for low transverse scar from previous cesarean delivery; O26.893 Other specified pregnancy related conditions, third trimester; F17.210 Nicotine dependence, cigarettes, uncomplicated; O99.214 Obesity complicating childbirth; E66.9 Obesity, unspecified; O99.334 Smoking (tobacco) complicating childbirth; O77.0 Labor and delivery complicated by meconium in amniotic fluid; Z3A.38 38 weeks gestation of pregnancy; Z37.0 Single live birth; Z79.899 Other long term (current) drug therapy; Y93.89 Activity, other specified; Z67.41 Type O blood, Rh negative; O67.8 Other intrapartum hemorrhage; X58.XXXA Exposure to other specified factors, initial encounter; Y92.234 Operating room of hospital as the place of occurrence of the external cause; O90.89 Other complications of the puerperium, not elsewhere classified; R05 Cough; O90.81 Anemia of the puerperium; F12.90 Cannabis use, unspecified, uncomplicated
CPT/HCPCS: 36415; 36430; 74018; 80048; 80307; 82803; 83036; 85007; 85025; 85027; 85461; 86592; 86689; 86706; 86762; 86803; 86850; 86900; 86901; 86920; 87040; 87086; 88307; 88341; 88342; G0378; J0330; J0690; J1100; J1170; J1200; J1885; J2370; J2405; J2590; J2704; J2710; J2765; J2790; J7030; J7120; J7121; P9016; Q9968

== ENCOUNTER 2018-12-19 22:53 | Emergency (ER) | payer MEDICAID ==
--- NOTE | 2018-12-20 00:24 | Emergency Department Report ---
ED General Adult HPI - General Chief complaint: Tube Replacement Stated complaint: POST OP PAIN Time Seen by Provider: 12/19/18 23:54 Source: patient Mode of arrival: Ambulatory Limitations: No Limitations - History of Present Illness Initial comments: The patient presents to the emergency department with a chief complaint of leaking Vora catheter. Patient states a Vora was placed this past Monday after an emergency resulted int the tube connecting her kidneys or bladder being cut per the patient. - Related Data Previous Rx's Medication Instructions Recorded Last Taken Type HYDROcodone/APAP 5-325 [[place] 1 - 2 each PO Q4HR PRN 30 Days 12/16/18 Unknown Rx 5/325] tablet Sulfamethoxazole/Trimethoprim 1 each PO BID #90 tablet 12/19/18 Unknown Rx [Bactrim DS TAB] Allergies Allergy/AdvReac Type Severity Reaction Status Date / Time No Known Allergies Allergy Unverified 12/16/18 11:34 ED Review of Systems ROS: Stated complaint: POST OP PAIN Other details as noted in HPI Comment: All other systems reviewed and negative Constitutional: denies: chills, fever Eyes: denies: eye pain, eye discharge, vision change ENT: denies: ear pain, throat pain Respiratory: denies: cough, shortness of breath, wheezing Cardiovascular: denies: chest pain, palpitations Endocrine: no symptoms reported Gastrointestinal: denies: abdominal pain, nausea, diarrhea Genitourinary: denies: urgency, dysuria, discharge Musculoskeletal: denies: back pain, joint swelling, arthralgia Skin: denies: rash, lesions Neurological: denies: headache, weakness, paresthesias Psychiatric: denies: anxiety, depression Hematological/Lymphatic: denies: easy bleeding, easy bruising ED Past Medical Hx - Past Medical History Previous Medical History?: No Hx Hypertension: No Hx Heart Attack/AMI: No Hx Congestive Heart Failure: No Hx Diabetes: No Hx Deep Vein Thrombosis: No Hx Liver Disease: No Hx Renal Disease: No Hx Sickle Cell Disease: No Hx Seizures: No Hx Asthma: No Hx COPD: No Hx HIV: No - Surgical History Past Surgical History?: No Hx Pacemaker: No Hx Internal Defibrillator: No - Social History Smoking Status: Current Every Day Smoker Substance Use Type: None - Medications Home Medications: Home Medications Medication Instructions Recorded Confirmed Last Taken Type HYDROcodone/APAP 5-325 [[place] 1 - 2 each PO Q4HR PRN 30 Days 12/16/18 Unknown Rx 5/325] tablet Sulfamethoxazole/Trimethoprim 1 each PO BID #90 tablet 12/19/18 Unknown Rx [Bactrim DS TAB] ED Physical Exam - General Limitations: No Limitations General appearance: alert, in no apparent distress - Head Head exam: Present: atraumatic, normocephalic - Eye Eye exam: Present: normal appearance - ENT ENT exam: Present: mucous membranes moist - Neck Neck exam: Present: normal inspection - Respiratory Respiratory exam: Present: normal lung sounds bilaterally. Absent: respiratory distress - Cardiovascular Cardiovascular Exam: Present: regular rate, normal rhythm. Absent: systolic murmur, diastolic murmur, rubs, gallop - GI/Abdominal GI/Abdominal exam: Present: soft, normal bowel sounds - External exam: Present: other (Vora in place with leaking) - Extremities Exam Extremities exam: Present: normal inspection - Back Exam Back exam: Present: normal inspection - Neurological Exam Neurological exam: Present: alert, oriented X3, CN II-XII intact. Absent: motor sensory deficit - Psychiatric Psychiatric exam: Present: normal affect, normal mood - Skin Skin exam: Present: warm, dry, intact, normal color. Absent: rash ED Course Vital Signs 12/19/18 23:01 Temperature 98.3 F Pulse Rate 75 Respiratory 16 Rate Blood Pressure 122/71 O2 Sat by Pulse 99 Oximetry ED Medical Decision Making - Medical Decision Making vora replaced Critical care attestation.: If time is entered above; I have spent that time in minutes in the direct care of this critically ill patient, excluding procedure time. ED Disposition Clinical Impression: Vora catheter problem Disposition: TO HOME OR SELFCARE Is pt being admited?: No Does the pt Need Aspirin: No Condition: Stable Instructions: Urinary Leg Bag (GEN), Vora Catheter Placement and Care (ED) Additional Instructions: return if worse Referrals: [facility] [Provider Group] - 3-5 Days [facility] [Provider Group] - 3-5 Days Time of Disposition: 00:24
[2018-12-20] MEDS ORDERED: SODIUM CHLORIDE 0.9% IRR 500 ML BOTTLE IR ONE (00:50)
[2018-12-20] MEDS ORDERED: SODIUM CHLORIDE IRRI 500 ML 500 ML IR ONE (07:03)
[2018-12-21 04:47] VITALS: BP 118/66
== END 2018-12-20 01:00 | disposition home or self-care (01) ==
LOC: ED 22:53
DX: T83.091A Other mechanical complication of indwelling urethral catheter, initial encounter (principal); Z79.899 Other long term (current) drug therapy; F17.200 Nicotine dependence, unspecified, uncomplicated
CPT/HCPCS: 51702

== ENCOUNTER 2018-12-24 19:48 | Emergency (ER) | payer MEDICAID ==
[2018-12-24 19:59] VITALS: BP 121/57
--- NOTE | 2018-12-24 21:57 | Emergency Department Report ---
Chief Complaint: Urogenital-Female Stated Complaint: REMOVE CATH Time Seen by Provider: 12/24/18 21:37 - HPI History of Present Illness: Patient is a 38-year-old female presents emergency room with complaints of wanting her Vora catheter removed. She states that it is uncomfortable. the patient states that the catheter is draining properly. she does not have a leak currently. She denies any fever, chills, vomiting, diarrhea, abdominal pain. According to the operative report on [id number] it states that the Vora catheter should remain in place for 2 weeks. Advised patient to contact Dr. Coughlin's office first thing tomorrow morning and discuss her discomfort with the Vora catheter. vitals are normal will not be able to remove pts vora catheter from the emergency department as the operative note states for it to stay in for two weeks and it has only been 8 days, pt needs to get in touch with urologist for further instructions on her vora catheter - Exam Vital Signs: Vital Signs 12/24/18 12/24/18 19:54 21:10 Temperature 98.7 F 98.7 F Pulse Rate 89 89 Respiratory 18 18 Rate Blood Pressure 121/57 121/57 O2 Sat by Pulse 99 100 Oximetry ED Disposition for MSE Clinical Impression: Vora catheter problem Qualifiers: Encounter type: initial encounter Qualified Code(s): T83.9XXA - Unspecified complication of genitourinary prosthetic device, implant and graft, initial encounter Disposition: [facility] SCREENING EXAM-LEFT Is pt being admited?: No Does the pt Need Aspirin: No Condition: Stable Additional Instructions: Please contact Dr. Coughlin's office first thing in the morning (12/25/18) and discuss your discomfort with the Vora catheter. Return to the emergency room immediately for any new or worsening symptoms Referrals: IVET COUGHLIN MD [Staff Physician] - AYO RIDER MD [Staff Physician] - [facility] Time of Disposition: 21:55 Print Language: SERBIAN
== END 2018-12-24 22:16 | disposition left against medical advice (07) ==
LOC: ED 19:48
DX: T83.9XXA Unspecified complication of genitourinary prosthetic device, implant and graft, initial encounter (principal)
CPT/HCPCS: 99283

== ENCOUNTER 2019-01-07 09:56 | Outpatient (CLI) | payer MEDICAID ==
--- NOTE | 2019-01-07 13:51 | Fluoroscopy Report ---
FLUOROSCOPY CYSTOGRAM STATIC HISTORY: Other injury of bladder, history of emergency on December 16 with resulting hyster ectomy. COMPARISON: [facility]UB dated 12/17/2018 FINDINGS: Environmental Studies Program Director film of the abdomen demonstrates bilateral ureteral stents which appear in good position. The b owel gas pattern is within normal limits. No pathologic calcifications. 2.2 minutes of fluoroscopy time was utilized. 23 fluoroscopic images were captured. A Askew catheter was placed for retrograde administration of contrast agent. Only a small amount of c ontrast agent could be delivered to the bladder. There is no gross bladder mass or filling defect. Re flux into the distal ureters was noted throughout this exam. There is an abnormal collection of contrast posterior to the bladder throughout this exam. There appe ars to be a fistula to the vagina or less likely the rectum. 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 See above. Signer Name: Aniceto Carrion Jr, MD Signed: 01/07/2019 1:47 PM Workstation Name: [id number]
== END 2019-01-07 09:57 | disposition home or self-care (01) ==
LOC: FLUORO 09:56
PROVIDERS: ATTEND Urology
DX: S37.29XA Other injury of bladder, initial encounter (principal); E66.9 Obesity, unspecified; Z98.891 History of uterine scar from previous surgery; Z90.710 Acquired absence of both cervix and uterus; Z79.899 Other long term (current) drug therapy; Z93.50 Unspecified cystostomy status; Z96.0 Presence of urogenital implants; Z68.32 Body mass index [BMI] 32.0-32.9, adult; Z88.8 Allergy status to other drugs, medicaments and biological substances; X58.XXXA Exposure to other specified factors, initial encounter; Y93.89 Activity, other specified; Y92.89 Other specified places as the place of occurrence of the external cause; Y99.8 Other external cause status
CPT/HCPCS: 51600; 74430; Q9958